=== PATIENT | female | born 1935 | race Caucasian/White ===

== ENCOUNTER 2023-10-04 18:44 | Inpatient (IN) | payer MEDICARE, BC ==
[~2023-10-04] VITALS: Ht 160 cm; Wt 62.6 kg
[2023-10-04] MEDS ORDERED: LIPITOR PO (18:50)
[2023-10-04] MEDS ORDERED: XANAX (18:50)
[2023-10-04] MEDS ORDERED: ZYRTEC (18:50)
[2023-10-04 19:19] LABS: *BILIRUBIN,URIN NEGATIVE (NEGATIVE); *BLOOD, URINE 2+ (NEGATIVE); *CLARITY,URINE CLEAR (CLEAR); *COLOR,URINE YELLOW (YELLOW); *KETONES,URINE NEGATIVE (NEGATIVE); *PROTEIN,URINE 1+ (NEGATIVE); *UROBILINOGEN,URINE 0.2 E.U./dl (NORMAL); LEUKOCYTE ESTERASE ,URINE 1+ (NEGATIVE); NITRITE, URINE NEGATIVE (NEGATIVE); UGLUCOSE NEGATIVE (NEGATIVE)
[2023-10-04] MEDS ORDERED: ONDANSETRON 4 MG/2 ML VIAL ONE (19:24)
[2023-10-04] MEDS ORDERED: HYDROMORPHONE 1 MG/1 ML DISP.SYRIN ONE (19:25)
[2023-10-04] MEDS: IV NORMAL SALINE 1000 ML BAG IV ONE (19:28)
[2023-10-04] MEDS: ONDANSETRON 4 MG/2 ML VIAL IV ONE (19:30)
[2023-10-04] MEDS: HYDROMORPHONE 1 MG/1 ML DISP.SYRIN IV ONE (19:30)
[2023-10-04 19:41] LABS: ALANINE AMINOTRANSFERASE 38 U/L (14-59); ALBUMIN 2.1 g/dL (3.4-5.0); ALKALINE PHOSPHATASE 80 U/L (50-136); ASPARTATE AMINOTRANSFERASE 36 U/L (15-37); BILIRUBIN,DIRECT 0.3 mg/dL (0.0-0.2); BILIRUBIN,TOTAL 0.8 mg/dL (0.2-1.0); CALCIUM 7.7 mg/dL (8.5-10.1); CARBON DIOXIDE 22 mmol/L (21-32); CHLORIDE 102 mmol/L (98-107); CREATININE 2.2 mg/dL (0.6-1.3); GLUCOSE 112 mg/dL (74-106); LIPASE 39 U/L (16-77); POTASSIUM 4.4 mmol/L (3.5-5.1); SODIUM SERUM 136 mmol/L (136-145); TOTAL PROTEIN, SERUM 6.6 g/dL (6.4-8.2); UREA NITROGEN, BLOOD 43 mg/dL (7-18)
[2023-10-04 19:51] LABS: BASOPHILS # (AUTO) 0.1 K/UL (0.0-0.2); BASOPHILS % (AUTO) 0.5 % (0.0-2.0); EOSINOPHILS % (AUTO) 0.2 % (0.0-7.0); HEMATOCRIT 30.1 % (31.2-41.9); LYMPHOCYTES # (AUTO) 0.6 K/uL (0.8-4.8); LYMPHOCYTES % (AUTO) 4.8 % (20.5-51.5); MEAN CORPUSCULAR HEMOGLOBIN 30.9 uug (24.7-32.8); MEAN CORPUSCULAR HGB CONC 33 g/dL (32.3-35.6); MEAN CORPUSCULAR VOLUME 92.7 fL (75.5-95.3); MONOCYTES # (AUTO) 0.8 K/uL (0.1-1.30); MONOCYTES % (AUTO) 7.2 % (0.0-11.0); NEUTROPHILS # (AUTO) 10.1 K/uL (1.8-8.9); NEUTROPHILS % (AUTO) 87.3 % (38.5-71.5); PLATELET COUNT (AUTO) 219 K/uL (179-408); RED BLOOD CELL COUNT(AUTO) 3.24 MIL/uL (3.63-4.92); RED CELL DISTRIBUTION WIDTH 14.8 % (12.3-17.7); WHITE BLOOD COUNT (AUTO) 11.5 K/uL (3.8-11.8)
[2023-10-04 19:52] LABS: DIFFERENTIAL COMMENT 1
[2023-10-04] MEDS ORDERED: CEFTRIAXONE /D5W 50ML IVPB **ER PYXIS IV ONE (20:12)
[2023-10-04] MEDS: CEFTRIAXONE 1 G in IV DEXTROSE 5% 50 ML IV ONE (20:18)
[2023-10-04] MEDS ORDERED: PIPERACILLIN/TAZOBACTAM/D5W 50 ML IV ONE (20:53)
[2023-10-04] MEDS: PIPERACILLIN SODIUM/TAZOBACTAM 3.375 G in IV DEXTROSE 5% 50 ML IV ONE (20:58)
[2023-10-04] MEDS ORDERED: IOHEXOL 300MG/ML 100 ML INFUS..BTL ONE (20:59)
[2023-10-04] MEDS ORDERED: SWABABLE VALVE TRANSFER SET EA MC ONE (20:59)
[2023-10-04] MEDS ORDERED: IV NORMAL SALINE 250 ML IV ONE (20:59)
[2023-10-04] MEDS ORDERED: IOHEXOL 350 100 ML INFUS..BTL ONE (21:01)
[2023-10-04] MEDS ORDERED: REMEDY ESSENTIAL ZINC PASTE 113 GM TP PRN (21:45)
[2023-10-04] MEDS ORDERED: ACETAMINOPHEN 325 MG TABLET PO PRN (21:45)
[2023-10-04] MEDS ORDERED: MAGNESIUM HYDROXIDE 30 ML LIQUID UDC PO PRN (21:45)
[2023-10-04] MEDS ORDERED: ONDANSETRON 4 MG/2 ML VIAL IV PRN (21:45)
[2023-10-04 22:46] LABS: BACTERIA,URINE MODERATE /HPF (NONE SEEN); SQUAMOUS EPITHELIAL CELL,UR MODERATE /HPF (NONE SEEN); WBC,URINE 50-80 /HPF (0-3)
[2023-10-05] MEDS: IV NS 1000 ML 1,000 ML IV PRN (00:03)
[2023-10-05 00:42] VITALS: BP 113/68; TEMP 98.9; O2SAT 96
[2023-10-05 04:21] VITALS: BP 126/62; TEMP 98.8; O2SAT 93
[2023-10-05 06:58] LABS: BASOPHILS % (AUTO) 0.3 % (0.0-2.0); EOSINOPHILS % (AUTO) 0.2 % (0.0-7.0); HEMATOCRIT 26.5 % (31.2-41.9); HEMOGLOBIN 8.7 g/dL (10.9-14.3); LYMPHOCYTES # (AUTO) 0.9 K/uL (0.8-4.8); LYMPHOCYTES % (AUTO) 6.9 % (20.5-51.5); MEAN CORPUSCULAR HEMOGLOBIN 30.5 uug (24.7-32.8); MEAN CORPUSCULAR HGB CONC 33 g/dL (32.3-35.6); MEAN CORPUSCULAR VOLUME 93.3 fL (75.5-95.3); MONOCYTES % (AUTO) 7.2 % (0.0-11.0); NEUTROPHILS # (AUTO) 11.6 K/uL (1.8-8.9); NEUTROPHILS % (AUTO) 85.4 % (38.5-71.5); PLATELET COUNT (AUTO) 231 K/uL (179-408); RED BLOOD CELL COUNT(AUTO) 2.84 MIL/uL (3.63-4.92); RED CELL DISTRIBUTION WIDTH 14.7 % (12.3-17.7); WHITE BLOOD COUNT (AUTO) 13.6 K/uL (3.8-11.8)
[2023-10-05 07:12] LABS: CALCIUM 6.8 mg/dL (8.5-10.1); CARBON DIOXIDE 20 mmol/L (21-32); CHLORIDE 109 mmol/L (98-107); GLUCOSE 95 mg/dL (74-106); MAGNESIUM 2.5 mg/dL (1.8-2.4); PHOSPHOROUS 2.6 mg/dL (2.5-4.9); POTASSIUM 4.3 mmol/L (3.5-5.1); SODIUM SERUM 138 mmol/L (136-145); UREA NITROGEN, BLOOD 34 mg/dL (7-18)
[2023-10-05 07:15] LABS: DIFFERENTIAL COMMENT 1
[2023-10-05] MEDS ORDERED: PIPERACILLIN SODIUM/TAZOBACTAM 3.375 G in IV DEXTROSE 5% 50 ML IV SCH ×3 (08:00→09:00)
[2023-10-05] MEDS: PIPERACILLIN SODIUM/TAZOBACTAM 3.375 G in IV DEXTROSE 5% 100 ML IV SCH (09:02)
[2023-10-05] MEDS ORDERED: LORA2TAB95 PO (10:16)
[2023-10-05] MEDS ORDERED: ESCI10TA PO (10:16)
[2023-10-05] MEDS ORDERED: BACL10TA PO (10:16)
[2023-10-05] MEDS ORDERED: PROP20TA19 PO (10:16)
[2023-10-05 11:30] VITALS: BP 108/59; TEMP 99; O2SAT 94
[2023-10-05 15:55] VITALS: BP 106/57; TEMP 98.9; O2SAT 97
[2023-10-05] MEDS: PROPRANOLOL HCL 20 MG TABLET PO SCH (17:34)
[2023-10-05] MEDS: BACLOFEN 10 MG TABLET PO SCH (17:36)
[2023-10-05 20:00] VITALS: BP 106/70; TEMP 98.5; O2SAT 95
[2023-10-05] MEDS: ATORVASTATIN 10 MG TABLET PO SCH (21:27)
[2023-10-06 06:00] VITALS: BP 121/62; TEMP 98.7; O2SAT 97
[2023-10-06 07:16] LABS: BASOPHILS % (AUTO) 0.5 % (0.0-2.0); EOSINOPHILS # (AUTO) 0.1 K/uL (0.0-0.7); EOSINOPHILS % (AUTO) 0.9 % (0.0-7.0); HEMATOCRIT 24.2 % (31.2-41.9); HEMOGLOBIN 8.2 g/dL (10.9-14.3); LYMPHOCYTES # (AUTO) 0.8 K/uL (0.8-4.8); LYMPHOCYTES % (AUTO) 7.7 % (20.5-51.5); MEAN CORPUSCULAR HEMOGLOBIN 31.7 uug (24.7-32.8); MEAN CORPUSCULAR HGB CONC 34 g/dL (32.3-35.6); MEAN CORPUSCULAR VOLUME 93.6 fL (75.5-95.3); MONOCYTES # (AUTO) 0.8 K/uL (0.1-1.30); MONOCYTES % (AUTO) 8.5 % (0.0-11.0); NEUTROPHILS # (AUTO) 8.1 K/uL (1.8-8.9); NEUTROPHILS % (AUTO) 82.4 % (38.5-71.5); PLATELET COUNT (AUTO) 232 K/uL (179-408); RED BLOOD CELL COUNT(AUTO) 2.58 MIL/uL (3.63-4.92); WHITE BLOOD COUNT (AUTO) 9.9 K/uL (3.8-11.8)
[2023-10-06 07:23] LABS: DIFFERENTIAL COMMENT 1
[2023-10-06 07:27] LABS: CARBON DIOXIDE 20 mmol/L (21-32); CHLORIDE 113 mmol/L (98-107); GLUCOSE 92 mg/dL (74-106); POTASSIUM 4.1 mmol/L (3.5-5.1); SODIUM SERUM 142 mmol/L (136-145); UREA NITROGEN, BLOOD 22 mg/dL (7-18)
[2023-10-06 07:33] LABS: CALCIUM 6.8 mg/dL (8.5-10.1)
[2023-10-06] MEDS: ESCITALOPRAM OXALATE 10 MG TABLET PO SCH (09:25)
[2023-10-06 12:05] VITALS: BP 114/61; TEMP 97.7; O2SAT 97
[2023-10-06 16:00] VITALS: BP 134/75; TEMP 98.2; O2SAT 97
[2023-10-06 20:25] VITALS: BP 142/65; TEMP 99.5; O2SAT 97
[2023-10-06 20:42] LABS: *BILIRUBIN,URIN NEGATIVE (NEGATIVE); *CLARITY,URINE CLEAR (CLEAR); *COLOR,URINE YELLOW (YELLOW); *KETONES,URINE NEGATIVE (NEGATIVE); *PROTEIN,URINE 1+ (NEGATIVE); *UROBILINOGEN,URINE 0.2 E.U./dl (NORMAL); LEUKOCYTE ESTERASE ,URINE TRACE (NEGATIVE); NITRITE, URINE NEGATIVE (NEGATIVE); UGLUCOSE NEGATIVE (NEGATIVE)
[2023-10-06 20:49] LABS: *BLOOD, URINE TRACE (NEGATIVE)
[2023-10-06 20:53] LABS: RBC,URINE 0-3 /HPF (0-3)
[2023-10-06 20:54] LABS: BACTERIA,URINE FEW /HPF (NONE SEEN); MUCUS,URINE MODERATE /LPF (0-FEW); SQUAMOUS EPITHELIAL CELL,UR FEW /HPF (NONE SEEN)
[2023-10-06 21:03] LABS: *CREATININE,URINE 43.4 mg/dL (30-125); *URINE TOTAL PROTEIN RANDOM 50.8 mg/dL (<150/24HR)
[2023-10-07 04:12] VITALS: BP 144/66; TEMP 98.9; O2SAT 99
[2023-10-07 06:42] LABS: BASOPHILS # (AUTO) 0.1 K/UL (0.0-0.2); BASOPHILS % (AUTO) 0.5 % (0.0-2.0); EOSINOPHILS # (AUTO) 0.1 K/uL (0.0-0.7); EOSINOPHILS % (AUTO) 0.6 % (0.0-7.0); HEMATOCRIT 25.8 % (31.2-41.9); HEMOGLOBIN 8.6 g/dL (10.9-14.3); LYMPHOCYTES # (AUTO) 0.9 K/uL (0.8-4.8); LYMPHOCYTES % (AUTO) 9.3 % (20.5-51.5); MEAN CORPUSCULAR HEMOGLOBIN 31.5 uug (24.7-32.8); MEAN CORPUSCULAR HGB CONC 33 g/dL (32.3-35.6); MEAN CORPUSCULAR VOLUME 94.2 fL (75.5-95.3); MONOCYTES # (AUTO) 0.7 K/uL (0.1-1.30); MONOCYTES % (AUTO) 7.2 % (0.0-11.0); NEUTROPHILS # (AUTO) 8.3 K/uL (1.8-8.9); NEUTROPHILS % (AUTO) 82.4 % (38.5-71.5); PLATELET COUNT (AUTO) 292 K/uL (179-408); RED BLOOD CELL COUNT(AUTO) 2.74 MIL/uL (3.63-4.92); RED CELL DISTRIBUTION WIDTH 15.1 % (12.3-17.7); WHITE BLOOD COUNT (AUTO) 10.1 K/uL (3.8-11.8)
[2023-10-07 06:45] LABS: DIFFERENTIAL COMMENT 1
[2023-10-07 07:07] LABS: ALANINE AMINOTRANSFERASE 21 U/L (14-59); ALBUMIN 1.6 g/dL (3.4-5.0); ALKALINE PHOSPHATASE 60 U/L (50-136); ASPARTATE AMINOTRANSFERASE 14 U/L (15-37); BILIRUBIN,TOTAL 0.8 mg/dL (0.2-1.0); CALCIUM 6.9 mg/dL (8.5-10.1); CARBON DIOXIDE 21 mmol/L (21-32); CHLORIDE 113 mmol/L (98-107); CREATININE 1.6 mg/dL (0.6-1.3); GLUCOSE 99 mg/dL (74-106); MAGNESIUM 2.2 mg/dL (1.8-2.4); PHOSPHOROUS 2.8 mg/dL (2.5-4.9); POTASSIUM 3.9 mmol/L (3.5-5.1); SODIUM SERUM 142 mmol/L (136-145); TOTAL PROTEIN, SERUM 5.8 g/dL (6.4-8.2); UREA NITROGEN, BLOOD 16 mg/dL (7-18)
[2023-10-07 19:15] VITALS: BP 149/73; TEMP 97.8; O2SAT 96
[2023-10-07] MEDS: LORAZEPAM 1 MG TABLET PO PRN (22:18)
[2023-10-08 06:50] LABS: BASOPHILS # (AUTO) 0.1 K/UL (0.0-0.2); BASOPHILS % (AUTO) 0.5 % (0.0-2.0); EOSINOPHILS # (AUTO) 0.1 K/uL (0.0-0.7); EOSINOPHILS % (AUTO) 0.6 % (0.0-7.0); HEMATOCRIT 25.6 % (31.2-41.9); HEMOGLOBIN 8.4 g/dL (10.9-14.3); LYMPHOCYTES # (AUTO) 1.3 K/uL (0.8-4.8); LYMPHOCYTES % (AUTO) 11.3 % (20.5-51.5); MEAN CORPUSCULAR HEMOGLOBIN 30.9 uug (24.7-32.8); MEAN CORPUSCULAR HGB CONC 33 g/dL (32.3-35.6); MEAN CORPUSCULAR VOLUME 93.6 fL (75.5-95.3); MONOCYTES # (AUTO) 0.8 K/uL (0.1-1.30); MONOCYTES % (AUTO) 7.2 % (0.0-11.0); NEUTROPHILS % (AUTO) 80.4 % (38.5-71.5); PLATELET COUNT (AUTO) 327 K/uL (179-408); RED BLOOD CELL COUNT(AUTO) 2.73 MIL/uL (3.63-4.92); RED CELL DISTRIBUTION WIDTH 14.9 % (12.3-17.7); WHITE BLOOD COUNT (AUTO) 11.2 K/uL (3.8-11.8)
[2023-10-08 06:54] VITALS: BP 147/72; TEMP 98; O2SAT 94
[2023-10-08 06:57] LABS: CALCIUM 6.8 mg/dL (8.5-10.1); CREATININE 1.3 mg/dL (0.6-1.3); POTASSIUM 3.5 mmol/L (3.5-5.1)
[2023-10-08 07:01] LABS: DIFFERENTIAL COMMENT 1
[2023-10-08] MEDS: MIRALAX 17 GM POWD.PACK PO SCH (08:58)
[2023-10-08] MEDS ORDERED: NITR100C11 PO (11:57)
[2023-10-08 12:00] VITALS: BP 133/66; TEMP 98.3; O2SAT 97
[2023-10-08] MEDS: PIPERACILLIN SODIUM/TAZOBACTAM 3.375 G in IV DEXTROSE 5% 100 ML IV SCH (13:29)
[2023-10-08 16:00] VITALS: BP 135/66; TEMP 98.4; O2SAT 97
[2023-10-08 19:00] VITALS: BP 152/68; TEMP 98.1; O2SAT 96
[2023-10-09 06:09] VITALS: BP 153/72; TEMP 98.1; O2SAT 98
[2023-10-09 06:40] LABS: BASOPHILS # (AUTO) 0.1 K/UL (0.0-0.2); EOSINOPHILS # (AUTO) 0.1 K/uL (0.0-0.7); EOSINOPHILS % (AUTO) 0.6 % (0.0-7.0); HEMATOCRIT 26.3 % (31.2-41.9); HEMOGLOBIN 8.7 g/dL (10.9-14.3); LYMPHOCYTES # (AUTO) 1.4 K/uL (0.8-4.8); LYMPHOCYTES % (AUTO) 13.3 % (20.5-51.5); MEAN CORPUSCULAR HGB CONC 33 g/dL (32.3-35.6); MONOCYTES # (AUTO) 0.4 K/uL (0.1-1.30); MONOCYTES % (AUTO) 4.2 % (0.0-11.0); NEUTROPHILS # (AUTO) 8.6 K/uL (1.8-8.9); NEUTROPHILS % (AUTO) 80.9 % (38.5-71.5); PLATELET COUNT (AUTO) 337 K/uL (179-408); RED BLOOD CELL COUNT(AUTO) 2.79 MIL/uL (3.63-4.92); RED CELL DISTRIBUTION WIDTH 15.2 % (12.3-17.7); WHITE BLOOD COUNT (AUTO) 10.6 K/uL (3.8-11.8)
[2023-10-09 06:55] LABS: CALCIUM 7.4 mg/dL (8.5-10.1); CARBON DIOXIDE 24 mmol/L (21-32); CHLORIDE 109 mmol/L (98-107); CREATININE 1.4 mg/dL (0.6-1.3); GLUCOSE 97 mg/dL (74-106); POTASSIUM 3.5 mmol/L (3.5-5.1); SODIUM SERUM 141 mmol/L (136-145); UREA NITROGEN, BLOOD 11 mg/dL (7-18)
[2023-10-09 07:05] LABS: DIFFERENTIAL COMMENT 1
[2023-10-09 09:51] LABS: ABG BASE EXCESS -1.2 mmol/L (-2.0-2.0); ABG HCO3 21.7 mmol/L (22.0-26.0); ABG PCO2 31.7 mmHg (35.0-48.0); ABG PH 7.454 (7.340-7.440); ABG PO2 68.9 mmHg (75.0-100.0); ABG SITE RIGHT RADIAL; AaDO2 94.8 mmHg
[2023-10-09 12:00] VITALS: BP 119/62; TEMP 97.6; O2SAT 98
[2023-10-09] MEDS: ENOXAPARIN SODIUM 60 MG/0.6 ML DISP.SYRIN SQ SCH (12:28)
[2023-10-09] MEDS: CEphaleXIN 250 MG CAPSULE PO SCH (13:56)
[2023-10-09 16:00] VITALS: BP 115/69; TEMP 97.7; O2SAT 97
[2023-10-09 16:49] VITALS: BP 138/69
[2023-10-09] MEDS ORDERED: [UNRECOGNIZED DRUG - REMARK] PO PRN (17:15)
[2023-10-09] MEDS: IV NS 1000 ML 1,000 ML IV PRN (18:36)
[2023-10-09 20:00] VITALS: BP 127/68; TEMP 98.5; O2SAT 97
[2023-10-09] MEDS ORDERED: ENOXAPARIN SODIUM 40 MG/0.4 ML DISP.SYRIN SQ SCH (21:00)
[2023-10-10 00:47] VITALS: TEMP 98.5
[2023-10-10 04:00] VITALS: TEMP 98.4
[2023-10-10 06:54] LABS: BASOPHILS # (AUTO) 0.1 K/UL (0.0-0.2); BASOPHILS % (AUTO) 1.3 % (0.0-2.0); EOSINOPHILS # (AUTO) 0.2 K/uL (0.0-0.7); HEMATOCRIT 22.3 % (31.2-41.9); LYMPHOCYTES # (AUTO) 0.9 K/uL (0.8-4.8); LYMPHOCYTES % (AUTO) 7.7 % (20.5-51.5); MEAN CORPUSCULAR HEMOGLOBIN 30.4 uug (24.7-32.8); MEAN CORPUSCULAR HGB CONC 33 g/dL (32.3-35.6); MEAN CORPUSCULAR VOLUME 93.2 fL (75.5-95.3); MONOCYTES # (AUTO) 0.6 K/uL (0.1-1.30); MONOCYTES % (AUTO) 5.1 % (0.0-11.0); NEUTROPHILS # (AUTO) 9.3 K/uL (1.8-8.9); NEUTROPHILS % (AUTO) 83.9 % (38.5-71.5); PLATELET COUNT (AUTO) 302 K/uL (179-408); RED CELL DISTRIBUTION WIDTH 14.9 % (12.3-17.7); WHITE BLOOD COUNT (AUTO) 11.1 K/uL (3.8-11.8)
[2023-10-10 07:14] LABS: CALCIUM 6.9 mg/dL (8.5-10.1); CARBON DIOXIDE 21 mmol/L (21-32); CHLORIDE 106 mmol/L (98-107); CREATININE 1.1 mg/dL (0.6-1.3); GLUCOSE 93 mg/dL (74-106); POTASSIUM 3.5 mmol/L (3.5-5.1); SODIUM SERUM 138 mmol/L (136-145); UREA NITROGEN, BLOOD 11 mg/dL (7-18)
[2023-10-10 07:15] LABS: DIFFERENTIAL COMMENT 1; HEMOGLOBIN 7.3 g/dL (10.9-14.3); RED BLOOD CELL COUNT(AUTO) 2.39 MIL/uL (3.63-4.92)
[2023-10-10 08:00] VITALS: BP 117/81; TEMP 98.2; O2SAT 97
[2023-10-10] MEDS: APIXABAN 5 MG TABLET PO SCH (08:32)
[2023-10-10] MEDS ORDERED: IOHEXOL 350 100 ML INFUS..BTL ONE (10:19)
[2023-10-10] MEDS ORDERED: SWABABLE VALVE TRANSFER SET EA MC ONE (10:19)
[2023-10-10] MEDS ORDERED: IV NORMAL SALINE 250 ML IV ONE (10:20)
[2023-10-10 12:00] VITALS: BP 131/63; TEMP 98; O2SAT 93
[2023-10-10] MEDS: ENSURE WITH FIBER 237 ML LIQUID (CHOCOLATE) PO SCH (14:39)
[2023-10-10 16:00] VITALS: BP 113/65; TEMP 98.2; O2SAT 96
[2023-10-10 20:25] VITALS: BP 116/62; TEMP 99.1; O2SAT 95
[2023-10-11 00:15] VITALS: BP 119/60; TEMP 98.8; O2SAT 95
[2023-10-11 06:05] VITALS: BP 128/62; TEMP 98.9; O2SAT 95
[2023-10-11 06:21] LABS: BASOPHILS # (AUTO) 0.1 K/UL (0.0-0.2); BASOPHILS % (AUTO) 0.4 % (0.0-2.0); EOSINOPHILS % (AUTO) 0.3 % (0.0-7.0); HEMATOCRIT 21.9 % (31.2-41.9); LYMPHOCYTES # (AUTO) 1.6 K/uL (0.8-4.8); LYMPHOCYTES % (AUTO) 12.3 % (20.5-51.5); MEAN CORPUSCULAR HGB CONC 33 g/dL (32.3-35.6); MEAN CORPUSCULAR VOLUME 93.4 fL (75.5-95.3); MONOCYTES # (AUTO) 0.6 K/uL (0.1-1.30); MONOCYTES % (AUTO) 5.1 % (0.0-11.0); NEUTROPHILS # (AUTO) 10.3 K/uL (1.8-8.9); NEUTROPHILS % (AUTO) 81.9 % (38.5-71.5); PLATELET COUNT (AUTO) 306 K/uL (179-408); RED CELL DISTRIBUTION WIDTH 15.4 % (12.3-17.7); WHITE BLOOD COUNT (AUTO) 12.6 K/uL (3.8-11.8)
[2023-10-11 06:52] LABS: DIFFERENTIAL COMMENT 1; HEMOGLOBIN 7.3 g/dL (10.9-14.3); RED BLOOD CELL COUNT(AUTO) 2.34 MIL/uL (3.63-4.92)
[2023-10-11 06:53] LABS: CALCIUM 7.6 mg/dL (8.5-10.1); CREATININE 1.2 mg/dL (0.6-1.3); POTASSIUM 3.7 mmol/L (3.5-5.1)
[2023-10-11 07:38] VITALS: BP 123/65; TEMP 98.6; O2SAT 97
[2023-10-11] MEDS ORDERED: APIX5TAB PO (10:23)
[2023-10-11 12:00] VITALS: BP 124/62; TEMP 98; O2SAT 97
[2023-10-11 16:00] VITALS: BP 121/61; TEMP 97.6; O2SAT 97
[2023-10-11 16:22] VITALS: BP 121/61
[2023-10-17] MEDS ORDERED: APIXABAN 5 MG TABLET PO SCH (09:00)
== END 2023-10-11 17:55 | DRG 682 ==
LOC: ER 18:46 → MEDSURG3 23:18 → TELE3 10-09 09:50 → MEDSURG3 10-11 10:01
PROVIDERS: ADMIT Nurse Practitioner Acute Care; ATTEND Nurse Practitioner Acute Care
DX: N17.0 Acute kidney failure with tubular necrosis (principal); G93.41 Metabolic encephalopathy; E44.0 Moderate protein-calorie malnutrition; N39.0 Urinary tract infection, site not specified; I82.411 Acute embolism and thrombosis of right femoral vein; I82.431 Acute embolism and thrombosis of right popliteal vein; E86.0 Dehydration; Z86.718 Personal history of other venous thrombosis and embolism; E78.5 Hyperlipidemia, unspecified; D64.9 Anemia, unspecified; E88.09 Other disorders of plasma-protein metabolism, not elsewhere classified; M89.8X9 Other specified disorders of bone, unspecified site; E83.51 Hypocalcemia; R55 Syncope and collapse
CPT/HCPCS: 36415; 36600; 71045; 71275; 76775; 78445; 83690; 83735; 84100; 84300; 85025; 85610; 93005; 93307; A9537; G0378; J0696; J1170; J1650; J2405; J2543; J7040; Q9967